=== PATIENT | female | born 1955 | race Caucasian/White ===

== ENCOUNTER 2017-03-22 06:37 | Inpatient (IN) | payer BC ==
[2017-03-21 11:18] LABS: BASOPHILS 0.6 %; BASOPHILS ABSOLUTE 0.03 10/3/uL (0.0-0.16); EOSINOPHILS 3.9 %; EOSINOPHILS ABSOLUTE 0.19 10/3/uL (0.0-0.53); HEMATOCRIT 36.7 % (36.0-48.0); HEMOGLOBIN 12.3 g/dL (12.0-16.0); IMMATURE GRANULOCYTES 0.2 %; IMMATURE GRANULOCYTES ABSOLUTE 0.01 10/3/uL (0.0-0.11); LYMPHOCYTES 33.5 %; LYMPHOCYTES ABSOLUTE 1.64 10/3/uL (0.67-4.30); MEAN CORPUS HGB CONC 33.5 g/dL (32.0-36.0); MEAN CORPUSCULAR HEMOGLOB 30.4 pg (26.0-34.0); MEAN CORPUSCULAR VOLUME 90.6 fL (80-100); MONOCYTES 6.5 %; MONOCYTES ABSOLUTE 0.32 10/3/uL (0.21-1.20); NEUTROPHILS 55.3 %; NEUTROPHILS ABSOLUTE 2.71 10/3/uL (2.02-8.40); PLATELET COUNT 262 10/3/uL (150-400); RBC DISTRIBUTION WIDTH 13.2 % (12.0-16.0); RED CELL COUNT 4.05 10/6/uL (4.0-5.6); WHITE BLOOD CELLS 4.9 10/3/uL (4.5-10.5)
[2017-03-21 11:19] LABS: MANUAL DIFF NO %
[2017-03-21 11:34] LABS: A/G RATIO 1.2 (0.7-1.9); ALBUMIN 3.6 G/DL (3.5-5.0); ALKALINE PHOSPHATASE 95 U/L (45-117); BUN (BLOOD UREA NITROGEN) 12 MG/DL (6-23); CALCIUM, SERUM 8.5 MG/DL (8.5-10.4); CHLORIDE, SERUM 108 MMOL/L (96-112); CO2 (CARBON DIOXIDE) 31 MMOL/L (24-34); CREATININE 0.84 MG/DL (0.55-1.02); GFR AFRICAN AMERICAN 87 ML/MIN (>=60); GFR NON AFRICAN AMERICAN 75 ML/MIN (>=60); GLOBULIN 2.9 G/DL (2.5-4.1); GLUCOSE, SERUM 107 MG/DL (60-99); POTASSIUM, SERUM 3.6 MMOL/L (3.5-5.3); SGOT(AST) 24 U/L (5-40); SGPT(ALT) 24 U/L (5-65); SODIUM, SERUM 143 MMOL/L (135-148); TOTAL BILIRUBIN 0.4 MG/DL (0-1.2); TOTAL PROTEIN 6.5 G/DL (6.0-8.5)
--- NOTE | ~2017-03-22 | OP ---
Record Of Operation [facility] [address] [place]. [address] NAME: NEGRA ROMERO : 55 STATUS : ADM IN PAT#: [id number] AGE: 61 ADM/REG DATE : 03/22/17 MR#: [id number] REPORT SERV DATE: 03/22/17 DICTATED BY: JOEL LUIS DATE: 03/22/17 REPORT STATUS : Draft TRANSCRIBED BY: MODL DATE: 03/22/17 DATE OF PROCEDURE: 03/22/2017 PREOPERATIVE DIAGNOSIS: Recurrent refractory gastroesophageal reflux disorder with paraesophageal herniation. POSTOPERATIVE DIAGNOSIS: Recurrent refractory gastroesophageal reflux disorder with paraesophageal herniation. PROCEDURES: Laparoscopic lysis of adhesions, repair of paraesophageal hiatal hernia with SIS BioMesh crural repair, and revision Paul fundoplication. SURGEON: Joel Luis M.D. RESIDENT SURGEON: Luis Bautista MD. ANESTHESIA: General. ESTIMATED BLOOD LOSS: 20 mL. DETAILS OF PROCEDURE: The patient arrived in the operating suite and placed on the table in supine position. General anesthesia was obtained via an endotracheal tube. The patient was placed in modified lithotomy. The abdomen was prepped and draped in a sterile manner. 0.5% Marcaine with epinephrine was infiltrated over the supraumbilical, left rectus muscle where a small incision was performed. A 10 mm blunt trocar was inserted under laparoscopic visualization. The peritoneal cavity insufflated with CO2 gas to 15 mmHg pressure. The patient was placed in reverse Trendelenburg. Additional trocars were inserted under laparoscopic visualization. The bilateral anterior axillary lines, subxiphoid, right paramedian regions instruments introduced. The lateral segment of the left lobe of the liver was retracted anteriorly. There were no adhesions of the liver to the stomach. Adhesions at the esophageal hiatus were taken down sharply allowing the herniated stomach to be largely reduced. Attenuated fundoplication wrap was then dissected and prior sutures lysed as well. Adhesions about the hiatus were taken down sharply and occasionally with the Harmonic karen allowing the stomach to totally be reduced and several centimeters of tension-free intraabdominal esophageal length to be established. A one-fourth inch Adonay drain was then placed about the lower esophagus. Additional mediastinal adhesions were taken down bluntly and occasionally with the Harmonic karen were sharply avoiding injury to either vagus nerve which were both clearly identified. Orogastric tube was then passed into the stomach. The crura were approximated posterior to the esophagus with a series of horizontal mattress 0 Ethibond sutures over a 4 x 7 cm piece of SIS BioMesh. 360-degree fundic wrap was then accomplished without tension or twisting and secured over 3 cm length with 3 interrupted 0 Ethibond. The more cephalad of which also included a bite of the esophagus to the right of the anterior vagus nerve. The [place] drain and orogastric tube were then removed as was the liver retractor. Peritoneal cavity deflated. Skin closure at all sites performed with subcuticular 4-0 Monocryl. Sterile dressing applied using Dermabond at each site. The patient awakened, extubated, and taken to PACU. Record Of Operation [address] [place]. [address] NAME: NEGRA ROMERO : 55 STATUS : ADM IN [facility]#: [id number] AGE: 61 ADM/REG DATE : 03/22/17 MR#: [id number] REPORT SERV DATE: 03/22/17 DICTATED BY: JOEL LUIS DATE: 03/22/17 REPORT STATUS : Draft TRANSCRIBED BY: KAY DATE: 03/22/17 /KAY Joel Luis M.D. / [id number] CC: Joel Luis M.D.
[~2017-03-22 06:37] MED LIST: ASAB PO; CARASPUDL PO; CARTIA XT240 MG/24 PO; CLARIT10 PO; LEVOTHYROXIN75 MCG PO; PREV30 PO; SYN.15 PO; VITC500 PO; ZOCOR20 PO
[2017-03-23] MEDS ORDERED: ULTRAM50 PO (09:14)
[2017-03-23] MEDS ORDERED: PR25 PO (09:15)
== END 2017-03-23 13:37 | disposition home or self-care (01) | DRG 328 ==
LOC: SDC 06:37 → SDC/OF 12:29 → 5SO 13:33
PROVIDERS: Specialist
PROC: 0BUR4KZ (ICD-10-PCS; 2017-03-22)
PROC: 0DV44ZZ Restriction of Esophagogastric Junction, Percutaneous Endoscopic Approach (ICD-10-PCS; principal; 2017-03-22 08:30)
DX: K44.9 Diaphragmatic hernia without obstruction or gangrene (principal); E66.9 Obesity, unspecified; I10 Essential (primary) hypertension; K21.9 Gastro-esophageal reflux disease without esophagitis; Z68.33 Body mass index [BMI] 33.0-33.9, adult
CPT/HCPCS: 80053; 85025; 93005; A9270-GY; C1781; J0690; J2250; J2405; J2550; J2710; J3010